=== PATIENT | male | born 1960 | race Hispanic/Latino ===

== ENCOUNTER 2021-03-02 09:58 | Day surgery (SDC) | payer MEDICARE ==
[2021-03-02] MEDS ORDERED: SODIUM CHLORIDE 0.9% 500 ML 500 ML IV SCH (11:00)
[2021-03-02] MEDS ORDERED: diphenhydrAMINE 50 MG/ML VIAL IV ONE (11:18)
[2021-03-02] MEDS ORDERED: methylPREDNISolone Sod Succinate 125 MG/2 ML INJ IV ONE (11:22)
[2021-03-02] MEDS ORDERED: FAMOTIDINE 20 MG/2 ML INJ IV ONE (11:23)
[2021-03-02] MEDS ORDERED: INSULIN REGULAR, HUMAN 100 UNITS/1 ML ONE (13:16)
[2021-03-02] MEDS ORDERED: CALCIUM GLUCONATE 2,000 MG in SODIUM CHLORIDE 0.9% 100 ML IV ONE (13:20)
[2021-03-02] MEDS ORDERED: DEXTROSE 50% IN WATER (25GM) 50 ML SYRINGE IV ONE ×3 (13:20→14:31)
[2021-03-02] MEDS ORDERED: INSULIN REGULAR, HUMAN 100 UNITS/1 ML IV ONE (13:20)
[2021-03-02] MEDS ORDERED: HEPARIN/NS 5000 UNIT/500ML 1,000 ML IR ONE (13:22)
[2021-03-02] MEDS ORDERED: LIDOCAINE (2%) 20 MG/1 ML VIAL 20 ML MDV INFILTRATI ONE ×3 (13:23→16:01)
[2021-03-02] MEDS ORDERED: VERAPAMIL 5 MG/2 ML INJ ONE (13:23)
[2021-03-02] MEDS ORDERED: HEPARIN 10,000 UNITS/10 ML VIAL ONE (13:23)
[2021-03-02] MEDS ORDERED: NITROGLYCERIN SYRINGE 3 ML ONE (13:24)
[2021-03-02] MEDS ORDERED: MIDAZOLAM 2 MG/2 ML INJ ONE ×2 (13:24→15:22)
[2021-03-02] MEDS ORDERED: fentaNYL 100 MCG/2 ML INJ ONE ×2 (13:26→15:22)
[2021-03-02] MEDS ORDERED: HEPARIN 10,000 UNITS/10 ML VIAL IV ONE ×2 (14:12→14:50)
[2021-03-02] MEDS ORDERED: MIDAZOLAM 2 MG/2 ML INJ IV ONE ×2 (14:30→15:25)
[2021-03-02] MEDS ORDERED: fentaNYL 100 MCG/2 ML INJ IV ONE ×2 (14:30→15:25)
[2021-03-02] MEDS ORDERED: WATER FOR INJ Sterile (PF) 10 ML ONE (15:05)
[2021-03-02] MEDS ORDERED: ALTEPLASE 2 MG INJ ONE (15:05)
[2021-03-02] MEDS ORDERED: ALTEPLASE 2 MG INJ IV ONE (15:11)
[2021-03-02] MEDS ORDERED: HEPARIN/NS 5000 UNIT/500ML 500 ML IR ONE (15:20)
--- NOTE | 2021-03-02 16:42 | Short Stay Summary ---
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 (Verified 03/10/13 01:59) Rash verapamil [Verapamil] Adverse Reaction (Verified 03/26/13 06:49) Anaphylaxis Home Medications Medication Instructions Recorded Confirmed Last Taken Type AtorvaSTATin [Lipitor] 20 mg PO QHS 03/02/21 03/02/21 03/01/21 History Calcium Acetate [Phoslo] 667 mg PO TID 03/02/21 03/02/21 03/01/21 History Cholecalciferol (Vitamin D3) 5,000 unit PO DAILY 03/02/21 03/02/21 03/01/21 History [Vitamin D3] Docusate Sodium [Colace] 100 mg PO BID PRN 03/02/21 03/02/21 03/01/21 History Gabapentin 300 mg PO QHS 03/02/21 03/02/21 03/01/21 History Pantoprazole [Protonix] 40 mg PO QDAY 03/02/21 03/02/21 03/01/21 History Vit B Comp No.3/Folic/C/Biotin 1 each PO DAILY 03/02/21 03/02/21 03/01/21 History [Tracey-Lizeth Rx Tablet] Active Medications Sodium Chloride (Nacl 0.9% 500 Ml) 500 mls @ 50 mls/hr IV DIRECT ROMAN Last Admin: 03/02/21 12:48 Dose: 50 mls/hr Documented by: - Brief post op/procedure progress note Date of procedure: 03/02/21 Pre-op diagnosis: Complications of Dialysis Access Post-op diagnosis: same Procedure: 1. Access Left Arm AV Fistula with 7 Tunisian Sheath Venous 2. Diagnostic Fistulagram with Central Venogram Using CO2 3. Angioplasty and Stent of Left Innominate and Subclavian Veins with 12 x 40 Conquest Balloon and 12 x 80 and 12 x 60 Covera Stent Grafts 4. Percutaneous Pharmacomechanical Thrombectomy of Left Arm AV Fistula with 6 mg of TPA, Trerotola Device, and Aspiration with An 8 Tunisian MP Guide Catheter 5. Angioplasty and Stent of Left Arm AV Fistula with an 8 x 40 Angiosculpt Balloon, 10 x 40 Schuyler Balloon, 10 x 100 Covera Stent Graft In the Cephalic Arch, and a 10 x 60 Covera Stent Graft Near the Arterial Inflow 6. Radiologic Supervision with Interpretation 7. Monitored Moderate Sedation (Total Anesthesia Time: 122 Minutes) Anesthesia: local, other (Monitored Moderate Sedation) Surgeon: JIMMY MASON Estimated blood loss: 50-100ml Pathology: none Condition: stable - Disposition Condition at discharge: Good Disposition: 01 HOME / SELF CARE / HOMELESS Short Stay Discharge Plan Wound: remove dressing (Tomorrow during dialysis. Remove the suture by pulling the longer of the 2 strings.)
--- NOTE | 2021-03-02 17:09 | Operative Report ---
Operative Report Operative Report: Date of Procedure: 03/02/2021 Pre-operative Diagnosis: Complications of Dialysis Access Post-operative Diagnosis: Same Procedure(s): 1. Access Left Arm AV Fistula with 7 Paraguayan Sheath Venous 2. Diagnostic Fistulagram with Central Venogram Using CO2 3. Angioplasty and Stent of Left Innominate and Subclavian Veins with 12 x 40 Conquest Balloon and 12 x 80 and 12 x 60 Covera Stent Grafts 4. Percutaneous Pharmacomechanical Thrombectomy of Left Arm AV Fistula with 6 mg of TPA, Trerotola Device, and Aspiration with An 8 Paraguayan MP Guide Catheter 5. Angioplasty and Stent of Left Arm AV Fistula with an 8 x 40 Angiosculpt Balloon, 10 x 40 Jasper Balloon, 10 x 100 Covera Stent Graft In the Cephalic Arch, and a 10 x 60 Covera Stent Graft Near the Arterial Inflow 6. Radiologic Supervision with Interpretation 7. Monitored Moderate Sedation (Total Anesthesia Time: 122 Minutes) Surgeon: Gerard Purvis M.D. Summer Internship: None Anesthesia: Local/Monitored Moderate Sedation Total Anesthesia Time: 122 Minutes EBL: Minimal Counts: Correct Complications: None Condition: Stable Specimen: None Indication: The patient is a 60-year-old male with history of end-stage renal disease who is currently on hemodialysis through a left brachiocephalic arteriovenous fistula. He presents with complaints of severe left arm swelling and decreased clearance on dialysis. He is in need of a diagnostic fistulogram with central venogram and possible intervention. 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 He will be premedicated since contrast will be used in the balloon and there is a possibility of rupture of the balloon. He has been given the risk, benefits, and alternative procedures and has consented to the procedure. Angiographic Findings: The diagnostic fistulogram revealed occlusion of the fistula approximately 8 cm distal to the arterial anastomosis. There were multiple collateral branches maintaining patency of the fistula. There was no reconstitution of flow noted within the cephalic vein. After traversing the occluded fistula stents within the subclavian vein and innominate vein had approximately 85 to 90% stenosis. The superior vena cava was patent without evidence of flow-limiting stenosis. After intervention the fistula was patent with less than 20% residual stenosis within the fistula. The central venous system was patent with less than 30% residual stenosis. Description of Procedure: The patient was brought to the angio suite and laid in supine position. After a timeout was performed his left arm was prepped and draped in normal sterile fashion. Lidocaine was used to anesthetize the skin and soft tissue overlying the fistula, near the arterial inflow, and a 21-gauge micropuncture needle was used access the fistula towards the venous outflow. A 0.018 micropuncture wire was advanced into the fistula and after removing the needle a 7 Paraguayan 4 cm sheath was placed by Seldinger technique. A diagnostic fistulogram was performed, using CO2, with the previously described findings. I advanced a vertebral catheter and 0.018 Gladius Wire through the occluded fistula and into the central venous system and performed a central venogram with the previously described findings. I then advanced a 0.035 glide advantage wire into the inferior vena cava and performed angioplasty of the central venous system as well as the fistula using a 5 x 200 EverCross Balloon. I systemically heparinized the patient with 6000 units of heparin IV and then exchanged my sheath to a 7 Paraguayan 25 cm sheath. I performed angioplasty of the innominate vein as well as the subclavian vein with the 14 x 40 Hollister Balloon however this resulted in significant recoil with 75% residual stenosis so I decided to place stent graft within the self-expanding stents. I removed the 7 Paraguayan sheath and advanced a 12 x 80 Covera Stent Graft, bareback, into the innominate vein and deployed distally. I removed the delivery catheter and then advanced a 12 x 60 Covera stent graft, bareback, into the subclavian vein with approximately 2 cm of overlap with the previous stent graft and deployed it. I removed the delivery catheter and then placed an 8 Paraguayan 25 cm sheath back into the fistula. I then used a 12 x 40 Conquest Balloon to post dilate the stent grafts with a result of less than 20% residual stenosis within the innominate vein and less than 30% residual stenosis within the subclavian vein. I advanced a vertebral catheter into the central venous system and exchanged the advantage wire for 0.014 Spartacore Wire. I performed angioplasty of the entire occluded portion of the cephalic vein using an 8 x 40 Angiosculpt Balloon however this did not result in patency of the fistula. I pulled the sheath back into the patent portion of the fistula, and of the arterial inflow, and performed a fistulogram and at this point it became evident that just distal to the patent portion of the fistula there was a pseudoaneurysm with a significant amount of thrombus burden. I injected 6 mg of TPA into the pseudoaneurysm and allow this to dwell for approximately 10 minutes. I then used the Trerotola device to morcellate thrombus and used an 8 Paraguayan MP Guide Catheter to aspirate thrombus. Despite this I was unable to significantly decrease the thrombus burden within the pseudoaneurysm. I decided that this area and required coverage to exclude from flow. I advanced a Bentson wire into the central venous system and then advanced a 10 x 60 Covera Stent Graft across the pseudoaneurysm, bridging the previously placed stent and the patent portion of the fistula. Upon deploying the stent graft there was approximately 75% stenosis within the stent graft. I postdilated the stent graft with a 10 x 40 Jasper balloon which resulted in less than 10% residual stenosis. I then used a 10 x 40 Jasper balloon to perform angioplasty of the remainder of the fistula including the cephalic arch. Despite this there was still minimal flow through the fistula and continued flow through the collateral branches. I advanced the 8 Paraguayan MP guide catheter through the fistula and aspirated thrombus in the cephalic arch and despite aspirating thrombus there was still no outflow of the fistula. I performed a fistulogram through the MP guide catheter and at that point I noted approximately 75 to 85% stenosis in the cephalic arch over a long segment. I advanced the Bentson wire into the central venous system and then remove the 8 Paraguayan sheath and advanced the 10 x 100 Covera Stent Graft into the cephalic arch with approximately 2 cm of overlap into the stent graft within the subclavian vein. I deployed the stent graft and remove the delivery catheter and then postdilated the stent graft using the 10 x 40 Jasper balloon. I performed a fistulogram which revealed brisk flow of CO2 throughout the fistula with less than 20% residual stenosis throughout the fistula. At that point all catheters and wires were removed and a 2-0 Ethilon in slipknot fashion was used to close the entry site after removing the sheath. A sterile dressing was then applied to the entry site and the patient was transported to the recovery area in stable condition.
[2021-03-02 17:16] VITALS: BP 137/37
== END 2021-03-02 17:49 | disposition home or self-care (01) ==
LOC: CATHLABREC 09:58
PROVIDERS: ATTEND Surgery Vascular Surgery
DX: T82.868A Thrombosis due to vascular prosthetic devices, implants and grafts, initial encounter (principal); I12.9 Hypertensive chronic kidney disease with stage 1 through stage 4 chronic kidney disease, or unspecified chronic kidney disease; N18.9 Chronic kidney disease, unspecified; Z99.2 Dependence on renal dialysis; Z87.891 Personal history of nicotine dependence; Z79.899 Other long term (current) drug therapy; Z88.8 Allergy status to other drugs, medicaments and biological substances; Z91.041 Radiographic dye allergy status; Z98.890 Other specified postprocedural states; Y83.8 Other surgical procedures as the cause of abnormal reaction of the patient, or of later complication, without mention of misadventure at the time of the procedure
CPT/HCPCS: 36415; 36906; 37238; 84132; 99156; 99157; C1725; C1751; C1757; C1769; C1874; C1887; C1894; J0610; J1200; J1644; J2250; J2930; J2997; J3010; J7040; J1815

== ENCOUNTER 2021-03-14 09:23 | Day surgery (SDC) | payer MEDICARE ==
[2021-03-14 10:47] LABS: Basophils # (Auto) 0.1 K/mm3 (0.0-0.1); Eosinophils # (Auto) 0.2 K/mm3 (0.0-0.4); Eosinophils % (Auto) 1.9 % (0.0-4.3); Hematocrit 33.7 % (35.5-45.6); Hemoglobin 10.9 gm/dl (11.8-15.2); Lymphocytes # (Auto) 1.2 K/mm3 (1.2-5.4); Lymphocytes % (Auto) 13.2 % (13.4-35.0); Mean Corpuscular HGB Conc 32 % (32-34); Mean Corpuscular Volume 91 fl (84-94); Monocytes # (Auto) 0.5 K/mm3 (0.0-0.8); Platelet Count 216 K/mm3 (140-440); Red Blood Count 3.72 M/mm3 (3.65-5.03); Red Cell Distribution Width 13.3 % (13.2-15.2)
[2021-03-14 10:58] LABS: INR 0.88 (0.87-1.13)
[2021-03-14 10:59] LABS: Calcium 9.6 mg/dL (8.4-10.2); Partial Thromboplastin Time 29.3 Sec. (24.2-36.6)
[2021-03-14] MEDS ORDERED: SODIUM CHLORIDE 0.9% 500 ML 500 ML IV SCH (11:00)
[2021-03-14] MEDS ORDERED: diphenhydrAMINE 50 MG/ML VIAL ONE (11:37)
[2021-03-14] MEDS ORDERED: FAMOTIDINE 20 MG/2 ML INJ IV ONE ×2 (11:38→12:00)
[2021-03-14] MEDS ORDERED: methylPREDNISolone Sod Succinate 125 MG/2 ML INJ IM ONE (12:00)
[2021-03-14] MEDS ORDERED: diphenhydrAMINE 50 MG/ML VIAL IV ONE (12:00)
[2021-03-14] MEDS ORDERED: methylPREDNISolone Sod Succinate 125 MG/2 ML INJ IV ONE (12:00)
[2021-03-14] MEDS ORDERED: MIDAZOLAM 2 MG/2 ML INJ ONE ×2 (12:28→14:11)
[2021-03-14] MEDS ORDERED: fentaNYL 100 MCG/2 ML INJ ONE ×2 (12:28→14:11)
[2021-03-14] MEDS ORDERED: LIDOCAINE (2%) 20 MG/1 ML VIAL 20 ML MDV INFILTRATI ONE ×2 (12:33→13:12)
[2021-03-14] MEDS ORDERED: HEPARIN/NS 5000 UNIT/500ML 500 ML IR ONE (12:33)
[2021-03-14] MEDS ORDERED: ceFAZolin/Water 2 GM/20 ML 2 GM/20 ML SYRINGE IV ONE (13:04)
[2021-03-14] MEDS ORDERED: MIDAZOLAM 2 MG/2 ML INJ IV ONE ×3 (13:10→14:12)
[2021-03-14] MEDS ORDERED: fentaNYL 100 MCG/2 ML INJ IV ONE ×3 (13:10→14:13)
[2021-03-14] MEDS ORDERED: ceFAZolin/STERILE WATER 2 GM/20 ML SYRINGE IV ONE (13:11)
[2021-03-14] MEDS ORDERED: ALTEPLASE 2 MG INJ ONE (13:14)
[2021-03-14] MEDS ORDERED: WATER FOR INJ Sterile (PF) 10 ML ONE (13:14)
[2021-03-14] MEDS ORDERED: HEPARIN 10,000 UNITS/10 ML VIAL ONE (13:21)
[2021-03-14] MEDS ORDERED: HEPARIN 10,000 UNITS/10 ML VIAL IV ONE (13:23)
[2021-03-14] MEDS ORDERED: ALTEPLASE 2 MG INJ VEN-SHEATH ONE (13:24)
[2021-03-14] MEDS ORDERED: hydrALAZINE 20 MG/1 ML INJ ONE (14:18)
[2021-03-14] MEDS ORDERED: hydrALAZINE 20 MG/1 ML INJ IV ONE (14:22)
[2021-03-14] MEDS ORDERED: ONDANSETRON 4 MG/2 ML INJ ONE (14:46)
[2021-03-14] MEDS ORDERED: ONDANSETRON 4 MG/2 ML INJ IV ONE (14:51)
--- NOTE | 2021-03-14 15:20 | Short Stay Summary ---
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 (Verified 03/10/13 01:59) Rash verapamil [Verapamil] Adverse Reaction (Verified 03/26/13 06:49) Anaphylaxis Home Medications Medication Instructions Recorded Confirmed Last Taken Type AtorvaSTATin [Lipitor] 20 mg PO QHS 03/02/21 03/14/21 03/13/21 History 20 mg Calcium Acetate [Phoslo] 667 mg PO TID 03/02/21 03/14/21 03/13/21 History 667 mg Cholecalciferol (Vitamin D3) 5,000 unit PO DAILY 03/02/21 03/14/21 03/13/21 History [Vitamin D3] 5000 units Docusate Sodium [Colace CAP] 100 mg PO BID PRN 03/02/21 03/14/21 03/13/21 History 100 mg Gabapentin 300 mg PO QHS 03/02/21 03/14/21 03/13/21 History 300 mg Pantoprazole [Protonix TAB] 40 mg PO QDAY 03/02/21 03/14/21 03/13/21 History 40 mg Vit B Comp No.3/Folic/C/Biotin 1 each PO DAILY 03/02/21 03/14/21 03/13/21 History [Tracey-Lizeth Rx Tablet] 1 tab Active Medications Sodium Chloride (Nacl 0.9% 500 Ml) 500 mls @ 50 mls/hr IV DIRECT ROMAN - Physical exam General appearance: mild distress (Left upper extremity 2-3+ edema) Lungs: Normal air movement Extremities: normal temperature, normal color, abnormal (2-3+ edema of the left upper extremity) - Brief post op/procedure progress note Date of procedure: 03/14/21 Pre-op diagnosis: Thrombosed left upper extremity AV fistula Post-op diagnosis: same Procedure: Central dialysis access angioplasty. Peripheral dialysis access angioplasty and stent placement with AV fistula thrombectomy Anesthesia: local (With conscious sedation) Surgeon: ANTONIO DA SILVA Estimated blood loss: minimal Condition: stable - Hospital course Hospital course: Patient tolerated the procedure well. No immediate postprocedural complications. - Disposition Condition at discharge: Stable Disposition: 01 HOME / SELF CARE / HOMELESS - Discharge Diagnoses (1) Hemodialysis AV fistula thrombosis Status: Acute (2) End stage renal disease on dialysis Status: Acute Short Stay Discharge Plan Activity: advance as tolerated Weight Bearing Status: Weight Bear as Tolerated (Do not lift more than 10 pounds for 1 week) Diet: renal Wound: keep clean and dry, other (Stitch can be removed in the next few days at [facility]) Follow up with: ISAI NAVARRETE MD [Primary Care Provider] - 7 Days
--- NOTE | 2021-03-14 15:28 | Operative Report ---
Operative Report Operative Report: EXAM: 1. Ultrasound guided access of the AV fistula towards the venous limb. 2. CO2 fistulogram with continuous ultrasound-guided evaluation of the fistula 3. Infusion of 6 mg of TPA throughout the AV access 4. Angioplasty of the left innominate vein, subclavian vein, cephalic arch, and entire cephalic vein with an 8 mm x 100 mm angioplasty balloon 5. Angioplasty of the left innominate vein and subclavian vein and cephalic arch with a 12 mm x 60 mm angioplasty balloon 6. Angioplasty of the left cephalic vein with a 10 mm x 40 mm angioplasty balloon 7. Roller Presser Operator thrombectomy of the AV access 8. Ej thrombectomy of the AV access 9. Stenting of the mid cephalic vein with a 10 mm x 100 mm Covera stent and 10 mm x 60 mm Covera stent with 10 mm post dilation INDICATION: THROMBOSED LEFT ARM AV FISTULA WITH END-STAGE RENAL DISEASE. Procedure performed with CO2 contrast due to Bonilla-Javier's reaction to contrast in the past. DATE: 03/14/2021 MEDICATIONS: Please refer to nursing documentation for complete list of medications and heparin administration. VERSED AND FENTANYL TITRATED TO MODERATE SEDATION. THE PATIENT WAS MONITORED UNDER CONTINUOUS CARDIOPULMONARY MONITORING THROUGHOUT THE CASE. COMPLICATIONS: NONE IMMEDIATE TEACHING FELLOW: ANTONIO DA SILVA MD PROCEDURE: The procedure was discussed with the patient and the risks, benefits, and alternatives were discussed with the patient. Informed consent was obtained. The patient was transported into the angiography suite in stable condition and placed on the angiographic table. The left arm was assessed under real-time ultrasound which demonstrated a thrombosed left arm AV fistula. The patient was prepped and draped in a sterile fashion. Lidocaine was used to anesthetize the skin. Under ultrasound guidance, the AV fistula was punctured with the needle pointing towards the venous limb. 0.018 inch wire was advanced through the needle and this was exchanged for a transitional dilator. The inner dilator and wire were removed and a 0.035 inch Weeks wire was advanced through the transitional dilator. The dilator was exchanged for a 7 Kittitian short sheath. Angled catheter was advanced over the wire and the wire was advanced into the inferior vena cava under fluoroscopic guidance. Then the wire was removed and the Angled catheter was used to perform a pullback CO2 venography with continuous ultrasound evaluation. CO2 venography demonstrated occlusion of the left innominate vein stent, and occlusion of all of the dialysis access consistent with total access thrombosis. 6 mg of TPA were infused through the length of the clot to the sheath as the arterial anastomosis was manually compressed. 8 mm x 100 mm angioplasty balloon was used to perform angioplasty of the left innominate vein, subclavian vein, and entire cephalic vein. 12 mm x 60 mm angioplasty balloon was used to perform angioplasty of the left innominate vein, subclavian vein, and the cephalic arch. Of note, there was pre-existing stents in the left innominate vein, subclavian vein, cephalic arch, central cephalic vein, and peripheral most cephalic vein. The midportion of the cephalic vein was not stented. Roller Presser Operator thrombectomy was then used to perform thrombectomy of the left innominate vein, subclavian vein, and entire cephalic vein. Afterwards, Ej thrombectomy was used from the sheath to the central veins multiple times. Ultrasound was used to evaluate the stents and the stents were all clear of thrombus, but the mid cephalic vein was atretic and damaged in appearance on sonography. I then used a 10 mm x 40 mm angioplasty balloon to perform angioplasty throughout the cephalic vein. Repeat pillowcase cleaner and Ej thrombectomy was then performed. Ultrasound and CO2 evaluation demonstrated that the stents were all clear of thrombus, but the mid cephalic vein was atretic and severely narrowed. I decided that this area required stenting in order to salvage the dialysis access. 10 mm x 100 mm Covera and 10 mm x 60 mm Covera were then stented across this area. These were then postdilated with a 10 mm x 40 mm angioplasty balloon. CO2 angiography was then performed demonstrating patency of the entire cephalic vein fistula, left subclavian vein stent, and innominate vein stent with flow into the SVC. All the wires were removed. 3-0 Vicryl sutures were used to close the fistula access site. Dermabond was applied. Pressure was held until hemostasis was achieved. The patient was then transferred to the outpatient recovery area. FINDINGS: Please see the procedure note for the findings. IMPRESSION: 1. Successful pharmacomechanical thrombectomy of the thrombosed left AV fistula with peripheral dialysis access stenting and angioplasty. 2. Successful central dialysis access angioplasty and thrombectomy.
[2021-03-14] MEDS ORDERED: APIXABAN 5 MG TAB ONE (15:39)
[2021-03-14] MEDS ORDERED: APIXABAN 2.5 MG TAB PO ONE (16:00)
[2021-03-14 16:17] VITALS: BP 170/77
== END 2021-03-14 09:24 | disposition home or self-care (01) ==
LOC: CATHLABREC 09:23
PROVIDERS: ATTEND Radiology Diagnostic Radiology
DX: T82.868A Thrombosis due to vascular prosthetic devices, implants and grafts, initial encounter (principal); N18.6 End stage renal disease; Z79.899 Other long term (current) drug therapy; Z88.8 Allergy status to other drugs, medicaments and biological substances; Z91.041 Radiographic dye allergy status; Z98.890 Other specified postprocedural states; Y83.8 Other surgical procedures as the cause of abnormal reaction of the patient, or of later complication, without mention of misadventure at the time of the procedure
CPT/HCPCS: 36415; 36906; 36907; 80048; 85025; 85610; 85730; 99156; 99157; C1725; C1757; C1769; C1874; C1894; J0360; J0690; J1200; J1644; J2250; J2405; J2997; J3010; J7040; 36905; 36908; J2930